=== PATIENT | female | born 1945 | race African-American/Black ===

== ENCOUNTER 2017-06-18 21:52 | Emergency (ER) | payer OTHER ==
[2017-06-18 22:04] VITALS: BP 175/85; PULSE 64; TEMP 97.7; BMI 24.5
--- NOTE | 2017-06-18 23:49 | PDOC ---
History of Present Illness - General Chief Complaint: Blood Pressure Problem Stated Complaint: BLOOD PRESSURE PROBLEM Time Seen by Provider: 06/18/17 23:27 - History of Present Illness Initial Comments: 06/18/17 23:47 71 year old female with right shoulder pain x 2 weeks after taking fenofibrate, denies trauma/injury. patient subsequently stopped the medication, continued to have right shoulder pain, pain reduced with aspercreme tonight. patient reports higher b/p than normal today with mild nausea. denies chest pain, SOB, vomtiing , diarrhea, abdominal pain. pmhx;: hyperlipedemia hypertension, diabetes mellitus, Past History - Past Medical History Allergies/Adverse Reactions: Allergies Allergy/AdvReac Type Severity Reaction Status Date / Time fenofibrate Allergy Verified 06/18/17 22:01 Penicillins Allergy Verified 06/18/17 22:01 [id number] Reductase Allergy Verified 06/18/17 22:01 Inhibitor Home Medications: Ambulatory Orders Nebivolol HCl [Bystolic] 5 mg PO ASDIR 09/22/14 Amlodipine Besylate 5 mg PO DAILY 06/18/17 Ibuprofen 800 mg PO BID 06/18/17 Lidocaine [Aspercreme] 1 each TP ASDIR 06/18/17 Losartan/Hydrochlorothiazide [Losartan-Hctz 100-25 mg Tab] 1 each PO DAILY 06/18 Metformin HCl 500 mg PO BID 06/18/17 Cancer: Yes (BREAST RIGHT) Diabetes: Yes HTN: Yes Hypercholesterolemia: Yes Thyroid Disease: No - Suicide/Smoking/Psychosocial Hx Smoking History: Never smoked Have you smoked in the past 12 months: No If you are a former smoker, when did you quit?: 35YRS AGO Information on smoking cessation initiated: No Hx Alcohol Use: No Drug/Substance Use Hx: No Substance Use Type: None Review of Systems - Review of Systems Able to Perform ROS?: Yes Is the patient limited Albanian proficient: No Constitutional: No: Symptoms Reported, See HPI, Chills, Diaphoresis, Fever, Loss of Appetite, Malaise, Night Sweats, Weakness, Weight Stable, Unintentional Wgt. Loss, Unexplained wgt Loss, Other Cardiac (ROS): Yes: Other (hypertension). No: Symptoms Reported, See HPI, Chest Pain, Edema, Irregular Heart Rate, Lightheadedness, Palpitations, Syncope , Chest Tightness ABD/GI: Yes: Nausea. No: Symptoms Reported, See HPI, Abdominal Distended, Abd. Pain w/ defecation, Blood Streaked Bowels, Constipated, Diarrhea, Difficulty Swallowing, Poor Appetite, Poor Fluid Intake, Rectal Bleeding, Vomiting, Indigestion, Abdominal cramping, Tarry Stools, Other Musculoskeletal: Yes: Other (right shoulder pain) Integumentary: No: Symptoms Reported, See HPI, Bruising, Change in Color, Change in Hair/Nails, Dryness, Erythema, Flushing, Lesions, Lumps, Pallor, Pruritus, Rash, Sweating, Other *Physical Exam - Vital Signs Last Vital Signs Temp Pulse Resp BP Pulse Ox 97.7 F 64 20 175/85 99 06/18/17 22:02 06/18/17 22:02 06/18/17 22:02 06/18/17 22:02 06/18/17 22:02 - Physical Exam General Appearance: Yes: Appropriately Dressed Respiratory/Chest: positive: Lungs Clear, Normal Breath Sounds Cardiovascular: positive: Regular Rhythm, Regular Rate Gastrointestinal/Abdominal: positive: Normal Bowel Sounds, Soft Musculoskeletal: positive: Normal Inspection Extremity: positive: Normal Capillary Refill, Normal Inspection, Normal Range of Motion Integumentary: positive: Normal Color, Dry, Warm Neurologic: positive: Fully Oriented, Alert, Normal Mood/Affect Heart Score/ECG Review - ECG Intrepretation Rhythm: Regular Rhythm Comment:: 06/19/17 01:31 sinus bradycardia: 51 ED Treatment Course - LABORATORY CBC & Chemistry Diagram: 06/19/17 00:50 06/19/17 00:50 Medical Decision Making - Medical Decision Making 06/19/17 03:12 xray: no acute fracture b/p wnl will d/c home. strict return precautions reviewed with patient *DC/Admit/Observation/Transfer Diagnosis at time of Disposition: Hypertension Qualifiers: Hypertension type: essential hypertension Qualified Code(s): I10 - Essential ( primary) hypertension Right shoulder pain Qualifiers: Chronicity: chronic Qualified Code(s): M25.511 - Pain in right shoulder - Discharge Dispostion Disposition: HOME - Referrals Referrals: John Dodson MD [Primary Care Provider] - - Patient Instructions Printed Discharge Instructions: How to Monitor Your Blood Pressure at Home Additional Instructions: continue you blood presure medication follow up with your doctor as soon as possible. return to the ED if symptoms worsen,
[2017-06-19 01:02] LABS: EOSINOPHIL 2.2 % (0-4.5); MCH 26.2 pg (25.7-33.7); MCHC 32.9 g/dl (32.0-36.0); MEAN CELL VOLUME 79.6 fl (80-96); MEAN PLT VOLUME 9.7 fl (7.5-11.1); NEUTROPHILS 45.9 % (42.8-82.8); PLATELET COUNT 166 K/MM3 (134-434); RDW 14.7 % (11.6-15.6); WHITE BLOOD COUNT 5.4 K/mm3 (4.0-10.0)
[2017-06-19 01:36] LABS: ALBUMIN 3.8 g/dl (3.4-5.0); ANION GAP 9 (8-16); BILIRUBIN,TOTAL 0.3 mg/dL (0.2-1.0); CALCIUM 9.3 mg/dL (8.5-10.1); CO2 29 mmol/L (21-32); CREATININE 0.8 mg/dL (0.55-1.02); GLUCOSE,RANDOM 119 mg/dL (74-106); SGOT/AST 18 U/L (15-37); SGPT/ALT 19 U/L (12-78); TOT PROT 7.7 g/dl (6.4-8.2)
[2017-06-19 01:38] LABS: ALK PHOS 82 U/L (45-117); CPK 201 IU/L (26-192); TROPONIN I < 0.02 ng/ml (0.00-0.05)
--- NOTE | 2017-06-19 19:49 | EKG ---
Test Reason : Blood Pressure : / mmHG Vent. Rate : 051 BPM Atrial Rate : 051 BPM P-R Int : 178 ms QRS Dur : 082 ms QT Int : 438 ms P-R-T Axes : 051 -06 -01 degrees QTc Int : 403 ms SINUS BRADYCARDIA RSR' PATTERN IN V1 NONSPECIFIC ST-T ABNORMALITIES WHEN COMPARED WITH ECG OF 28-MAY-2007 12:48, NO SIGNIFICANT CHANGE WAS FOUND REPEAT EKG IF CLINICALLY INDICATED Confirmed by MIK PIPER MD ([id number] on 06/19/2017 7:48:48 PM Referred By: Confirmed By:MIK PIPER MD
== END 2017-06-19 03:50 | disposition home or self-care (01) ==
LOC: JER 21:52
DX: I10 Essential (primary) hypertension (principal); E11.9 Type 2 diabetes mellitus without complications; Z79.84 Long term (current) use of oral hypoglycemic drugs; Z85.3 Personal history of malignant neoplasm of breast
CPT/HCPCS: 36415; 73030-TC-RT; 80053; 82553; 84484; 85025; 93005; 93010; 99284-25

== ENCOUNTER → 2022-02-15 | Day surgery (SDC) | payer OTHER | END | disposition home or self-care (01) | LOC: JRADUS-SUR 10:19 | PROVIDERS: ATTEND Surgery | PROC: 0H9T3ZX Drainage of Right Breast, Percutaneous Approach, Diagnostic (ICD-10-PCS; principal; 2022-02-15) | DX: C79.89 Secondary malignant neoplasm of other specified sites (principal) | CPT/HCPCS: 19083; 76641-TC-RT; 88305-TC; 88342-TC ==

== ENCOUNTER 2022-02-21 15:00 | Emergency (ER) | payer OTHER ==
[2022-02-21 15:19] VITALS: BP 131/75; TEMP 98.3; BMI 25.6
[2022-02-21] MEDS ORDERED: BEBTELOVIMAB (EUA) 175 MG/2 ML VIAL IVPUSH ONE (16:09)
[2022-02-21 19:56] VITALS: PULSE 76
== END 2022-02-21 19:57 | disposition home or self-care (01) ==
LOC: JER 15:00
PROC: 3E033GC Introduction of Other Therapeutic Substance into Peripheral Vein, Percutaneous Approach (ICD-10-PCS; principal; 2022-02-21)
DX: U07.1 COVID-19 (principal)
CPT/HCPCS: 99284-25; Q0222